=== PATIENT | male | born 1990 | race Caucasian/White ===

== ENCOUNTER 2016-09-03 22:45 | Emergency (ER) | payer BC ==
[2016-09-03] MEDS ORDERED: Proparacaine 0.5% Ophth Soln 15 ML Bottle EYELF ONE (22:56)
--- NOTE | 2016-09-03 23:10 | EDM.PDOC ---
ED HPI EYE COMPLAINT - General Chief Complaint: Eye Problems Stated Complaint: POSSIBLE OBJECT IN EYE Time Seen by Provider: 09/03/16 23:05 - History of Present Illness INITIAL COMMENTS - FREE TEXT/NARRATIVE: 25-year-old male complains of foreign body in his left eye. Patient was grinding metal 2 days ago and something got through his safety glasses. He has a lot of irritation from this and he has significant photophobia from it. Patient denies any drainage from eye. - Related Data Allergies/ADRs: Allergies No Known Allergies Allergy (Verified 11/18/13 22:49) Home Meds: Ambulatory Orders Medication Instructions Recorded Confirmed . [No Known Home Meds] 09/03/16 09/03/16 Past Medical History - Past Health History Medical/Surgical History: Denies Medical/Surgical History Social & Family History - Tobacco Use Second Hand Smoke Exposure: No - Alcohol Use Days Per Week of Alcohol Use: 2 Number of Drinks Per Day: 2 Total Drinks Per Week: 4 - Recreational Drug Use Recreational Drug Use: No ED ROS GENERAL - Review of Systems Review Of Systems: See Below Constitutional: Reports: no symptoms Respiratory: Reports: no symptoms Cardiovascular: Reports: No symptoms GI/Abdominal: Reports: No symptoms ED EXAM GENERAL W FULL EYE - Physical Exam Exam: See Below Exam Limited By: No limitations General Appearance: alert, no apparent distress Eye Exam: left eye: conjunctival injection, foreign body Extraocular Movements: bilateral: intact Pupils: normal accommodation Anterior Chamber: bilateral: normal appearance Posterior Chamber: left: normal funduscopic Respiratory/Chest: no respiratory distress, lungs clear, normal breath sounds Cardiovascular: regular rate, rhythm, no edema, no murmur ED EYE w/ Add Procedure - Eye Procedure Alcaine Drops Administered: Yes (proparacaine drops) Eye FB Removal: other (foreign body removed under slit-lamp guidance using a spud) Progress: after the foreign body was removed there was a residual rust ring a majority this was removed using a bur there is a deep central portion that I did not feel comfortable getting especially in the fact that this does not appear to be in his line of sight and has not affected his vision. I did discuss this with the patient and recommend he followup with an eye doctor tomorrow he agrees to do so. Course - Vital Signs Last Recorded V/S: Last Vital Signs Temp 36.0 C 09/03/16 22:53 Pulse 76 09/03/16 22:53 Resp 20 09/03/16 22:53 BP Pulse Ox 98 09/03/16 22:53 - Orders/Labs/Meds Orders: Active Orders 24 hr Category Date Time Status Vaccines to be Administered [RC] PER UNIT ROUTINE Care 09/04/16 00:22 Active Meds: Medications Discontinued Medications Generic Name Dose Route Start Last Admin Trade Name Yan PRN Reason Stop Dose Admin Acetaminophen/Hydrocodone Bitart 1 tab 09/04/16 01:02 09/04/16 01:10 Mclean 325-5 Mg PO 09/04/16 01:03 1 tab ONETIME ONE Administration Diphtheria/Tetanus/Acell Pertussis 0.5 ml 09/04/16 00:21 09/04/16 01:01 Boostrix IM 09/04/16 00:22 0.5 ml .ONCE ONE Administration Erythromycin 1 gm 09/04/16 01:02 09/04/16 01:07 Erythromycin 0.5% Ophth Oint EYEBOTH 09/04/16 01:03 1 drop ONETIME ONE Administration Fluorescein Sodium/Benoxinate HCl 1 ml 09/04/16 00:21 09/04/16 01:13 Fluress Ophth Soln EYELF 09/04/16 00:22 Not Given ONETIME ONE Proparacaine HCl 2 ml 09/03/16 22:56 09/03/16 22:59 Proparacaine 0.5% Ophth Soln EYELF 09/03/16 22:57 2 drop ONETIME ONE Administration - Re-Assessments/Exams Free Text/Narrative Re-Assessment/Exam: 09/04/16 01:12 patient had been in bed in the foreign body in his eye that needed to be removed with this but after removing a few layers of epithelial cells after this was done a bur removed the majority of the rest ring there is a deep central area that I had difficulty with. And was going deeper than I felt comfortable going. Patient is treated with erythromycin ointment will be given Mclean for pain control. The patient agrees to followup with an eye doctor tomorrow. the patient is unsure of his tetanus status this is updated. Departure - Departure Time of Disposition: 01:14 Disposition: Home, Self-Care 01 Clinical Impression: Foreign body of left eye Referrals: Kayli Bowman PA-C [Primary Care Provider] - Forms: ED Department Discharge Additional Instructions: Return to the emergency room if any questions or problems. Use the erythromycin ointment 1/2 inch to the left eye every 2 hours while awake for the next 2 days. Use the pain medication one or 2 pills every 6 hours as needed[address] Do not drive or returning to work within 12 hours of using this medication. Followup with an eye doctor as soon as you can tomorrow morning. - My Orders Last 24 Hours: My Active Orders 09/04/16 00:22 Vaccines to be Administered [RC] PER UNIT ROUTINE - Assessment/Plan Last 24 Hours: My Active Orders 09/04/16 00:22 Vaccines to be Administered [RC] PER UNIT ROUTINE
[2016-09-04] MEDS ORDERED: Diphtheria,Pertussis(Acell),Tetanus Vaccine 0.5 ML SDV inactive IM ONE (00:21)
[2016-09-04] MEDS ORDERED: Benoxinate/Fluorescein 0.4-0.25% Ophth Soln 5 ML Bottle EYELF ONE (00:21)
[2016-09-04] MEDS ORDERED: Erythromycin Base 0.5% Ophth Oint 1 GM Tube EYEBOTH ONE (01:02)
[2016-09-04] MEDS ORDERED: Acetaminophen/HYDROcodone 325-5 MG Tab PO ONE (01:02)
== END 2016-09-04 02:10 | disposition home or self-care (01) ==
LOC: JD.ED 22:45
DX: T15.12XA Foreign body in conjunctival sac, left eye, initial encounter (principal); Z23 Encounter for immunization
CPT/HCPCS: 65222; 90471; 99283; A9270; 65205; 90715